=== PATIENT | female | born 1965 | race Caucasian/White ===

== ENCOUNTER 2020-03-09 18:54 | Inpatient (IN) | payer OTHER ==
[~2020-03-09] VITALS: Ht 167.6 cm; Wt 59.0 kg
[2020-03-09 20:06] LABS: HEMOGLOBIN 10.5 gm/dl (12.3-15.3); RED BLOOD COUNT 4.48 M/UL (4.00-5.10); WHITE BLOOD COUNT 10.5 K/UL (4.5-11.0)
[2020-03-10 02:15] LABS: BUN/CREATININE RATIO 3 (0-10)
[2020-03-10] MEDS ORDERED: HYDROCODON-ACE1 EAC6 PO (10:10)
[2020-03-10] MEDS ORDERED: ALPRAZOLAM1 MG PO (10:10)
[2020-03-10] MEDS ORDERED: ZYPREXA10 MG PO (10:24)
[2020-03-10] MEDS ORDERED: ZOLOFT100 MG PO (10:25)
[2020-03-10 13:04] LABS: ADENOVIRUS F 40/41 Not Detected (Negative); ASTROVIRUS Not Detected (Negative); CAMPYLOBACTER Not Detected (Negative); CLOSTRIDIUM DIFFICILE TOX A/B Not Detected (Negative); CRYPTOSPORIDIUM Not Detected (Negative); E.COLI 0157 Not Detected (Negative); ENTAMOEBA HISTOLYTICA Not Detected (Negative); ENTEROAGGREGATIVE E.COLI (EAEC Not Detected (Negative); ENTEROPATHOGENIC E.COLI (EPEC) Not Detected (Negative); ENTEROTOXIGENIC E.COLI (ETEC) Not Detected (Negative); GIARDIA LAMBLIA Not Detected (Negative); NOROVIRUS GI/GII Not Detected (Negative); PLESIOMONAS SHIGELLOIDES Not Detected (Negative); ROTOVIRUS A Not Detected (Negative); SALMONELLA Not Detected (Negative); SAPOVIRUS Not Detected (Negative); SHIG/ENTEROINVAS.ECOLI (EIEC) Not Detected (Negative); SHIGA-LIK TOX.PRO.E.COLI (STEC Not Detected (Negative); VIBRIO Not Detected (Negative); VIBRIO CHOLERAE Not Detected (Negative); YERSINIA ENTEROCOLITICA Not Detected (Negative)
[2020-03-11 07:52] LABS: HEMOGLOBIN 9.5 gm/dl (12.3-15.3); RED BLOOD COUNT 4.07 M/UL (4.00-5.10)
[2020-03-11 08:35] LABS: BUN/CREATININE RATIO 3 (0-10)
[2020-03-12 06:13] LABS: HEMOGLOBIN 9.3 gm/dl (12.3-15.3); RED BLOOD COUNT 3.96 M/UL (4.00-5.10); WHITE BLOOD COUNT 4.2 K/UL (4.5-11.0)
[2020-03-12 06:50] LABS: BUN/CREATININE RATIO 3 (0-10)
[2020-03-12 19:16] LABS: BUN/CREATININE RATIO 2 (0-10)
[2020-03-13 06:07] LABS: HEMOGLOBIN 9.2 gm/dl (12.3-15.3); RED BLOOD COUNT 3.76 M/UL (4.00-5.10); WHITE BLOOD COUNT 3.3 K/UL (4.5-11.0)
[2020-03-13 06:24] LABS: BUN/CREATININE RATIO 2 (0-10)
[2020-03-14 06:51] LABS: HEMOGLOBIN 9.2 gm/dl (12.3-15.3); RED BLOOD COUNT 3.92 M/UL (4.00-5.10); WHITE BLOOD COUNT 2.9 K/UL (4.5-11.0)
[2020-03-14 07:15] LABS: BUN/CREATININE RATIO 3 (0-10)
[2020-03-15 06:47] LABS: BUN/CREATININE RATIO 3 (0-10)
[2020-03-15 07:13] LABS: HEMOGLOBIN 8.8 gm/dl (12.3-15.3); RED BLOOD COUNT 3.81 M/UL (4.00-5.10); WHITE BLOOD COUNT 3.3 K/UL (4.5-11.0)
[2020-03-16 03:34] LABS: HEMOGLOBIN 8.6 gm/dl (12.3-15.3); RED BLOOD COUNT 3.7 M/UL (4.00-5.10)
[2020-03-16 04:08] LABS: BUN/CREATININE RATIO 3 (0-10)
[2020-03-17] MEDS ORDERED: PHOS-NAK PACKET1 EA PO (09:59)
[2020-03-26] MEDS ORDERED: PROMETHEGAN25 MG PR (10:10)
[2020-03-26] MEDS ORDERED: FERROUS SULFAT325 MG PO (10:27)
== END 2020-03-17 14:42 | disposition home or self-care (01) | DRG 640 ==
LOC: ER1 18:54 → CDU 03-10 03:48 → M/S 03-10 23:51
PROVIDERS: Emergency Medicine; Family Medicine; Internal Medicine; ADMIT Internal Medicine
DX: E87.6 Hypokalemia (principal); E43 Unspecified severe protein-calorie malnutrition; C64.9 Malignant neoplasm of unspecified kidney, except renal pelvis; C7B.8 Other secondary neuroendocrine tumors; E87.2 Acidosis; K52.9 Noninfective gastroenteritis and colitis, unspecified; Z20.822 Contact with and (suspected) exposure to COVID-19; F41.9 Anxiety disorder, unspecified; G89.4 Chronic pain syndrome; D50.9 Iron deficiency anemia, unspecified; E83.39 Other disorders of phosphorus metabolism; Z79.899 Other long term (current) drug therapy; E87.8 Other disorders of electrolyte and fluid balance, not elsewhere classified; E88.09 Other disorders of plasma-protein metabolism, not elsewhere classified; R00.0 Tachycardia, unspecified; Z90.710 Acquired absence of both cervix and uterus; D72.819 Decreased white blood cell count, unspecified
CPT/HCPCS: 0240U; 36415; 71045; 80048; 80053; 82550; 82553; 82607; 82728; 82746; 83540; 83550; 83605; 83735; 83874; 84100; 84132; 84260; 84484; 85025; 85027; 86316; 87507; 90471; 93005; 96365; 96366; 96368; 96372; 96375; 96376; 97161; 97165; 99285; G0378; J1650; J2354; J2405; J2550; J3475; J3480

== ENCOUNTER → 2020-03-09 | Outpatient (CLI) | payer OTHER ==
[~2020-03-09] MED LIST: ALPRAZOLAM1 MG PO; FERROUS SULFAT325 MG PO; HYDROCODON-ACE1 EAC6 PO; IMODIUM CAP 2 MG2 MG PO; ONDANSETRON ODT8 MG PO; PHOS-NAK PACKET1 EA PO; PROMETHEGAN25 MG PR; RESTORIL 15 MG15 MG PO; ZOLOFT100 MG PO; ZYPREXA10 MG PO
[2020-03-09 16:48] LABS: HEMOGLOBIN 11.1 gm/dl (12.3-15.3); RED BLOOD COUNT 4.75 M/UL (4.00-5.10); WHITE BLOOD COUNT 8.7 K/UL (4.5-11.0)
== END ==
LOC: LAB 16:14
PROVIDERS: Internal Medicine Hematology & Oncology
DX: C7A.8 Other malignant neuroendocrine tumors (principal)
CPT/HCPCS: 36415; 80053; 84260; 85025; 86316

== ENCOUNTER 2020-03-26 10:30 | Inpatient (IN) | payer OTHER ==
[~2020-03-26] VITALS: Ht 170.2 cm; Wt 59.0 kg
[~2020-03-26 10:30] MED LIST changes: -IMODIUM CAP 2 MG2 MG PO; -ONDANSETRON ODT8 MG PO; -RESTORIL 15 MG15 MG PO
[2020-03-26 11:35] LABS: HEMOGLOBIN 9.8 gm/dl (12.3-15.3); RED BLOOD COUNT 4.01 M/UL (4.00-5.10); WHITE BLOOD COUNT 9.1 K/UL (4.5-11.0)
[2020-03-26 12:09] LABS: BUN/CREATININE RATIO 5 (0-10)
[2020-03-26] MEDS ORDERED: RESTORIL 15 MG15 MG PO (16:14)
[2020-03-26] MEDS ORDERED: ONDANSETRON ODT8 MG PO (16:17)
[2020-03-26] MEDS ORDERED: PHOS-NAK PACKET1 EA PO (16:58)
[2020-03-26] MEDS ORDERED: IMODIUM CAP 2 MG2 MG PO (17:17)
[2020-03-27 03:41] LABS: HEMOGLOBIN 9.8 gm/dl (12.3-15.3); RED BLOOD COUNT 4.04 M/UL (4.00-5.10); WHITE BLOOD COUNT 7.6 K/UL (4.5-11.0)
--- NOTE | 2020-03-28 06:08 | NUR ---
DRESSINGS TO BILAT ELBOWS/ARMS CHANGED AT 0545 ON 03/28/20. BLEEDING STILL NOTED TO EACH SITE, WITH MORE BLEEDING TO RIGHT ELBOW AND MORE CLEAR WEEPING TO LEFT ELBOW. 4X4'S AND GAUZE WRAP APPLIED TO EACH SITE.
[2020-03-28 11:38] LABS: HEMOGLOBIN 9.4 gm/dl (12.3-15.3); RED BLOOD COUNT 3.86 M/UL (4.00-5.10); WHITE BLOOD COUNT 5.1 K/UL (4.5-11.0)
--- NOTE | 2020-03-28 18:44 | NUR ---
LAB CALLED WITH A CRITICAL PT/INR AND CRITICAL POTASSIUM LEVEL. I NOTIFIED DR. BOOTHE AND HE INSTRUCTED ME TO INCREASE HER VITAMIN K FROM ONCE DAILY TO BID AND PUT IN ORDERS FOR POTASSIUM 40MEQ AT 1240 AND ONCE AGAIN LATER IN THE EVENING AND HAVE HER LABS RECHECKED IN THE MORNING. WILL CONTINUE TO MONITOR PT. SHE HAS SEVERAL AREAS ON THE BILATERAL ARMS THAT BLEED.
[2020-03-29 06:14] LABS: HEMOGLOBIN 9.2 gm/dl (12.3-15.3); RED BLOOD COUNT 3.79 M/UL (4.00-5.10)
[2020-03-29 06:16] LABS: WHITE BLOOD COUNT 6.6 K/UL (4.5-11.0)
--- NOTE | 2020-03-29 16:30 | NUR ---
Spoke with Liya RN re: PICC nurse consult. Pt has 2 peripheral IVs at present. Pt has elevated INR and Liya will address need for midline/picc line with .
[2020-03-30 06:14] LABS: HEMOGLOBIN 9.5 gm/dl (12.3-15.3); RED BLOOD COUNT 3.81 M/UL (4.00-5.10); WHITE BLOOD COUNT 7.4 K/UL (4.5-11.0)
--- NOTE | 2020-03-30 12:13 | NUR ---
VERBAL CONSENT RECIEVED VIA TELEPHONE FROM PATIENTS SISTER JOSE AT THIS TIME FOR FFP TRANSFUSION AND FOR CENTRAL LINE CATHETER PLACEMENT.
--- NOTE | 2020-03-30 14:39 | NUR ---
PATIENT NOTED TO BE BLEEDING A LARGE AMOUNT FROM HER LAC IV SITE THAT SHE PULLED OUT. PRESSURE DRESSING WAS APPLIED WITH 4X4'S AND [place]. PATIENT TOLERATED WELL. BLEEDING CONTROLED FOR THE TIME. MADE AWARE. HE STATES THAT HE WANTS TO ME TO CONTACT AND SEE IF MD JOSEPHINE IS ABLE TO PUT THE SURGICAL LINE IN TODAY SO THAT THE PATIENT CAN GET FFP SOON POSSIBLE INSTEAD OF WAITING FOR THE SCHEDULED SURGERY TOMORROW WITH MD ANASTACIA.
--- NOTE | 2020-03-30 15:03 | NUR ---
SPOKE WITH AT THIS TIME. INFORMED HIM THAT WAS UNABL TO DO THE PROCEDURE TODAY AND HE STATES THAT HE WANTS NURSING STAFF TO TRY FOR PERIPHERAL IV ONE TIME DUE TO RISK OF BLEEDING.
[2020-03-31 06:59] LABS: HEMOGLOBIN 8.4 gm/dl (12.3-15.3); RED BLOOD COUNT 3.39 M/UL (4.00-5.10); WHITE BLOOD COUNT 25.5 K/UL (4.5-11.0)
--- NOTE | 2020-03-31 11:05 | NUR ---
UPON ENTERING ROOM TO INSERT AND ULTRASOUND IV WITH MD ANASTACIA AND PATIENT WAS NOTED TO BE AGONAL BREATHING. TANK COOPER WAS INITIATED. UPON TANK COOPER ENTERING ROOM PATIENT WAS NOTED TO BE PULSELESS. CODE BLUE WAS ACTIVATED. SEE CODE SHEET. SISTER CONTACTED AND SPOKE WITH MD ROOSEVELT.
[2020-03-31 12:29] LABS: RED BLOOD COUNT 1.89 M/UL (4.00-5.10); WHITE BLOOD COUNT 17.5 K/UL (4.5-11.0)
[2020-03-31 12:30] LABS: HEMOGLOBIN 4.7 gm/dl (12.3-15.3)
--- NOTE | 2020-04-07 10:39 | NUR ---
LATE ENTRY FOR 03/30/2020. IV ATTEMPTED IN THE [facility] AT THIS TIME PRIOR TO SHIFT CHANGE WITH NO SUCCESS. [employer] MAKER NURSE MADE AWARE IN SHIFT CHANGE AND THAT WE ARE AWAITING AN IV ATTEMPT FROM ICU NURSES.
== END 2020-03-31 13:23 | disposition expired | DRG 813 ==
LOC: ER1 10:30 → M/S 15:56 → CDU 15:56 → M/S 23:24 → CCU 03-31 11:56
PROVIDERS: Emergency Medicine; ADMIT Internal Medicine
PROC: 3E033XZ Introduction of Vasopressor into Peripheral Vein, Percutaneous Approach (ICD-10-PCS; principal; 2020-03-31)
PROC: 05H533Z Insertion of Infusion Device into Right Subclavian Vein, Percutaneous Approach (ICD-10-PCS; 2020-03-31)
PROC: 5A12012 Performance of Cardiac Output, Single, Manual (ICD-10-PCS; 2020-03-31)
PROC: 5A1935Z Respiratory Ventilation, Less than 24 Consecutive Hours (ICD-10-PCS; 2020-03-31)
PROC: 0BH17EZ Insertion of Endotracheal Airway into Trachea, Via Natural or Artificial Opening (ICD-10-PCS; 2020-03-31)
PROC: 30233K1 Transfusion of Nonautologous Frozen Plasma into Peripheral Vein, Percutaneous Approach (ICD-10-PCS; 2020-03-31)
DX: D68.8 Other specified coagulation defects (principal); E43 Unspecified severe protein-calorie malnutrition; G93.41 Metabolic encephalopathy; A41.50 Gram-negative sepsis, unspecified; J96.00 Acute respiratory failure, unspecified whether with hypoxia or hypercapnia; R65.21 Severe sepsis with septic shock; C78.4 Secondary malignant neoplasm of small intestine; C7A.8 Other malignant neuroendocrine tumors; E87.1 Hypo-osmolality and hyponatremia; D62 Acute posthemorrhagic anemia; E87.2 Acidosis; C7B.02 Secondary carcinoid tumors of liver; C78.6 Secondary malignant neoplasm of retroperitoneum and peritoneum; N30.00 Acute cystitis without hematuria; N17.9 Acute kidney failure, unspecified; D68.2 Hereditary deficiency of other clotting factors; Z20.822 Contact with and (suspected) exposure to COVID-19; E87.6 Hypokalemia; R19.7 Diarrhea, unspecified; E83.39 Other disorders of phosphorus metabolism; K72.90 Hepatic failure, unspecified without coma; I46.9 Cardiac arrest, cause unspecified; Z68.20 Body mass index [BMI] 20.0-20.9, adult; F41.9 Anxiety disorder, unspecified; D50.9 Iron deficiency anemia, unspecified; G89.4 Chronic pain syndrome; Z90.710 Acquired absence of both cervix and uterus; B96.1 Klebsiella pneumoniae [K. pneumoniae] as the cause of diseases classified elsewhere; K76.0 Fatty (change of) liver, not elsewhere classified; R57.1 Hypovolemic shock
CPT/HCPCS: 31500; 36415; 36430; 36600; 51702; 70450; 71045; 71260; 76705; 80048; 80053; 81001; 82272; 82550; 82553; 82803; 82962; 83874; 84484; 85025; 85027; 85379; 85610; 85611; 85730; 85732; 86850; 86900; 86901; 86920; 86927; 87077; 87086; 87186; 90471; 90715; 92950; 93005; 94002; 96365; 96367; 99285; C9113; J0171; J0461; J0696; J1720; J2270; J2353; J2354; J2370; J2405; J2543; J2690; J3430; J3475; J3480; J7030; J7070; P9017; Q9967; U0002